=== PATIENT | male | born 1980 | race Caucasian/White ===

== ENCOUNTER 2016-12-31 19:05 | Emergency (ER) | payer BC, MEDICAID ==
[2016-12-31] MEDS ORDERED: Ketorolac 30 MG/ML SDV IVPUSH ONE (19:32)
[2016-12-31] MEDS ORDERED: Ondansetron 4 MG/2 ML SDV IVPUSH ONE (19:35)
[2016-12-31] MEDS ORDERED: Sodium Chloride 0.9% 1,000 ML IV ONE (19:35)
[2016-12-31] MEDS ORDERED: Iopamidol 755 MG/ML 500 ML Multipack Bottle IVPUSH STA (19:39)
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
[2016-12-31 20:12] LABS: CHLORIDE,CL 103 mmol/L (98-110); SODIUM,NA 140 mmol/L (136-146)
[2016-12-31 22:13] VITALS: BP 130/58
--- NOTE | 2017-01-01 15:38 | CT ---
EXAM DATE: 12/31/16 PATIENT'S AGE: 36 Patient: SERA AL Facility: [place], [place] Site . Site : [id number] Study: CT Abdomen/Pelvis [id number] 9:00:39 PM Ordering Physician: James Elaine Final Report: HISTORY: Abdominal pain. TECHNIQUE: Intravenous contrast enhanced CT of the abdomen and pelvis. 100 milliliters of Isovue 370 contrast administered. COMPARISON: No prior studies not available for direct comparison at time interpretation. FINDINGS: There is a subtle small area of low attenuation involving the posterior aspect of the dome of liver subtly seen on axial image #12 series 201. This is too small to characterize. There is no other focal hepatic abnormality. No biliary ductal dilatation. Gallbladder is contracted. Spleen size is upper limits of normal. The adrenal glands are normal. There is no focal pancreatic abnormality or acute peripancreatic inflammatory change. - Symmetric nephrograms. 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 Separate ureters are seen to the distal ureteral level. There is mild dilatation of the duplicated right ureters. No right-sided hydronephrosis. There is no right ureteral calculus. Sub cm low-density lesion within the medial aspect of the mid right kidney is too small to characterize though may represent tiny cyst. Urinary bladder is not optimally evaluated by CT but appears grossly unremarkable. - No small bowel obstruction. No appendicitis. No diverticulitis. No abdominal or pelvic fluid collection. No free air. Tiny fat containing right inguinal hernia. - No acute bony abnormality. - Lung bases are clear of focal infiltrate. No pleural effusion. IMPRESSION: 1. No specific identified cause of the patient`s right-sided abdominal pain. 2. No appendicitis, bowel obstruction or fluid collection. 3. 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 There is mild dilatation of both of the duplicated right ureters without obstructive calculus. No right- sided hydronephrosis. Dictated by Felix Amezquita MD @ 12/31/2016 9:09:52 PM Dictated by: Felix Amezquita MD @ 12/31/2016 21:10:00 (Electronic Signature) Report Signed by Proxy. MIREYA
== END 2016-12-31 22:14 | disposition home or self-care (01) ==
LOC: MW.ED 19:05
DX: K52.9 Noninfective gastroenteritis and colitis, unspecified (principal); Z88.0 Allergy status to penicillin; Z88.8 Allergy status to other drugs, medicaments and biological substances; Z87.891 Personal history of nicotine dependence
CPT/HCPCS: 74177; 80053; 81001; 83690; 85025; 96361; 96374; 96375; 99284; J1885; J2405; J7040; 99282

== ENCOUNTER 2022-12-04 14:01 | Emergency (ER) | payer MEDICAID ==
[2022-12-04 16:01] VITALS: BP 135/72; PULSE 58
[2022-12-04] MEDS ORDERED: Ibuprofen 400 MG Tab PO ONE (16:49)
[2022-12-04] MEDS ORDERED: Acetaminophen 325 MG Tab PO ONE (16:49)
== END 2022-12-04 17:43 | disposition home or self-care (01) ==
LOC: MW.ED 14:01
DX: S69.92XA Unspecified injury of left wrist, hand and finger(s), initial encounter (principal); Z88.0 Allergy status to penicillin; Z88.8 Allergy status to other drugs, medicaments and biological substances; W22.8XXA Striking against or struck by other objects, initial encounter
CPT/HCPCS: 29125; 73110; 73130; 99283; A9270